=== PATIENT | male | born 1965 | race Caucasian/White ===

== ENCOUNTER 2017-04-09 09:43 | Day surgery (SDC) | payer MEDICARE, MEDICAID ==
[2017-03-04 11:01] VITALS: BMI 21.9
--- NOTE | 2017-04-09 13:46 | OP ---
DATE OF PROCEDURE: 04/09/2017 SURGEON: Waqas Downey M.D. PROCEDURE: Colonoscopy. ANESTHESIA: Medication given per Anesthesiology Department. PREOPERATIVE DIAGNOSIS: Colon screening. POSTOPERATIVE DIAGNOSES: 1. Suboptimal prep in the right colon hampering full visualization. 2. Normal transverse, descending, and rectosigmoid colon. 3. Dilated and redundant colon. PROCEDURE IN DETAIL: Written consent was obtained prior to procedure. After adequate sedation, a re ctal exam was performed and was normal. Endoscope was advanced to the cecum with great difficulty as the colon is dilated and floppy. There is thick bilious mucousy material lined the ascending colon and cecum. Despite vigorous irrigation, complete visualization was not obtained because of suboptima l prep. However, there was no gross lesion, big polyps, tumor noted. The transverse colon appeared normal. The descending colon appeared normal. Retrosigmoid was tortuous, but otherwise normal. Ret roflexion did not show any abnormality. The patient tolerated procedure well. ASSESSMENT: 1. Suboptimal visualization of the right colon because of inadequate prep. 2. No gross lesions seen, mid to distal colon appeared normal. RECOMMENDATIONS: Repeat colonoscopy in 5 years with more vigorous bowel prep.
[2017-04-09] MEDS ORDERED: PHENYLEPHRINE-NS 100 MCG/ML 10 ML SYRINGE ONE (16:23)
[2017-04-09] MEDS ORDERED: PROPOFOL 200 MG/20 ML VIAL ONE (16:23)
== END 2017-04-09 14:10 | disposition home or self-care (01) ==
LOC: SDC 09:43
PROVIDERS: ATTEND Internal Medicine Gastroenterology
PROC: 0DJD8ZZ Inspection of Lower Intestinal Tract, Via Natural or Artificial Opening Endoscopic (ICD-10-PCS; principal; 2017-04-09)
DX: Z12.11 Encounter for screening for malignant neoplasm of colon (principal); Q43.8 Other specified congenital malformations of intestine; R13.10 Dysphagia, unspecified; Z88.2 Allergy status to sulfonamides; Z79.899 Other long term (current) drug therapy
CPT/HCPCS: J2704

== ENCOUNTER 2020-09-10 11:16 | Outpatient (CLI) | payer MEDICARE, MEDICAID ==
[2020-09-10 14:25] LABS: #Eosinphils 0.2 10x3/uL (0.0-0.5); #Monocytes 0.5 10x3/uL (0.0-1.1); #Neutrophils 5.8 10x3/uL (1.5-8.4); %Basophils 0.3 % (0.0-2.0); %Eosinophils 2.8 % (0.0-6.0); %Lymphocytes 11.6 % (18.0-47.0); %Monocytes 7.3 % (0.0-10.0); %Neutrophils 77.7 % (40.0-75.0); Hemoglobin 15.3 g/dL (13.5-17.5); Mean Corpuscular HGB CONC 33.4 g/dL (32.0-36.0); Mean Corpuscular Hemoglobin 31.1 pg (27.0-33.0); Mean Corpuscular Volume 93.1 fl (81.2-95.1); Mean Platelet Volume 10.7 fl (7.4-10.4); Platelet Count 267 10x3/uL (150-450); RBC Distribution Width 12.7 % (11.5-14.5); Red Blood Cell (RBC) Count 4.92 10x6/uL (4.32-5.72); White Blood Cell (WBC) Count 7.4 10x3/uL (3.5-10.5)
[2020-09-10 14:44] LABS: Anion Gap 14 mmol/L (10-20); BUN (Urea Nitrogen) 17 mg/dL (8.4-25.7); Calc. Creatinine Clearance 0 mL/min (70-130); Calcium 9.3 mg/dL (7.8-10.44); Carbon Dioxide 28 mmol/L (22-29); Chloride 103 mmol/L (98-107); Glucose 72 mg/dL (70-105); Potassium 5.2 mmol/L (3.5-5.1); Sodium 140 mmol/L (136-145)
[2020-09-11 01:30] LABS: SARS-CoV-2 PCR by NAA Not Detected (NotDetected)
== END 2020-09-10 11:17 | disposition home or self-care (01) ==
LOC: LABBT 11:16
PROVIDERS: ATTEND Specialist
DX: Z01.812 Encounter for preprocedural laboratory examination (principal); K40.90 Unilateral inguinal hernia, without obstruction or gangrene, not specified as recurrent; Z20.822 Contact with and (suspected) exposure to COVID-19
CPT/HCPCS: 80048; 85025; U0003; U0005; 87635

== ENCOUNTER 2020-09-13 08:04 | Day surgery (SDC) | payer MEDICARE, MEDICAID ==
[2020-09-12 09:46] VITALS: BMI 21.9
[2020-09-13] MEDS ORDERED: Ketorolac Tromethamine 30 MG/ML VIAL ONE (08:41)
[2020-09-13] MEDS ORDERED: Acetaminophen 500 MG TAB ONE (08:41)
[2020-09-13] MEDS ORDERED: Scopolamine 1.5 mg/72 hour Patch ONE (09:24)
[2020-09-13] MEDS ORDERED: Midazolam HCl 2 mg/2 ml Vial ONE (09:24)
[2020-09-13] MEDS ORDERED: Fentanyl 100 MCG/2 ML VIAL ONE (09:58)
[2020-09-13] MEDS ORDERED: Bupivacaine 0.25% HCL 30 ML VIAL ONE (10:01)
[2020-09-13] MEDS ORDERED: Lidocaine 1% w/Epinephrine 1:100K 20 ML VIAL ONE (10:01)
[2020-09-13] MEDS ORDERED: PHENYLEPHRINE-NS 100 MCG/ML 10 ML SYRINGE ONE (10:25)
[2020-09-13] MEDS ORDERED: Dexamethasone 20 MG/5 ML VIAL ONE (10:25)
[2020-09-13] MEDS ORDERED: PROPOFOL 200 MG/20 ML VIAL ONE (10:25)
[2020-09-13] MEDS ORDERED: Rocuronium Bromide 10 MG/ML (10ML VIAL) ONE (10:25)
[2020-09-13] MEDS ORDERED: Lidocaine 1% PF 5 ML VIAL ONE (10:25)
[2020-09-13] MEDS ORDERED: Glycopyrrolate 0.2 MG/ML 5 ML SYRINGE ONE (10:25)
[2020-09-13] MEDS ORDERED: ePHEDrine Sulfate 50 MG/10 ML VIAL ONE (10:25)
[2020-09-13] MEDS ORDERED: HYDROcodone/Acetaminophen 5/325 mg Tablet ONE (13:33)
== END 2020-09-13 14:00 | disposition home or self-care (01) ==
LOC: SDC 08:04
PROVIDERS: ATTEND Specialist
PROC: 0YU60JZ Supplement Left Inguinal Region with Synthetic Substitute, Open Approach (ICD-10-PCS; principal; 2020-09-13)
DX: K40.90 Unilateral inguinal hernia, without obstruction or gangrene, not specified as recurrent (principal); E55.9 Vitamin D deficiency, unspecified; Z79.899 Other long term (current) drug therapy; Z88.2 Allergy status to sulfonamides
CPT/HCPCS: 49505; C1781; J0690; J1100; J1885; J2250; J2704; J3010; S0020

== ENCOUNTER 2022-04-02 07:30 | Day surgery (SDC) | payer MEDICARE, MEDICAID ==
[2022-04-01 10:24] VITALS: BMI 20.8
[2022-04-02] MEDS ORDERED: PROPOFOL 200 MG/20 ML VIAL ONE (09:50)
== END 2022-04-02 12:50 | disposition home or self-care (01) ==
LOC: SDC 07:30
PROVIDERS: ATTEND Internal Medicine Gastroenterology
PROC: 0DJD8ZZ Inspection of Lower Intestinal Tract, Via Natural or Artificial Opening Endoscopic (ICD-10-PCS; principal; 2022-04-02)
DX: Z12.11 Encounter for screening for malignant neoplasm of colon (principal); K59.00 Constipation, unspecified; Z79.899 Other long term (current) drug therapy; Z88.2 Allergy status to sulfonamides
CPT/HCPCS: J2704